=== PATIENT | female | born 1960 | race American Indian/Alaskan Native ===

== ENCOUNTER 2018-04-26 11:31 | Outpatient (CLI) | payer OTHER ==
--- NOTE | 2018-04-26 13:13 | Mammography Report ---
BILATERAL DIGITAL SCREENING MAMMOGRAM with CAD: 04/26/18 11:31:00 CLINICAL: The patient was scheduled as a routine screening as she reported that she had pain in her left breast for one month. COMPARISON:None available. A previous mammogram from [place] is not available. FINDINGS: The breasts are heterogeneously dense, which may obscure small masses and limit the sensitivity of mammography. Left upper outer asymmetric densities require additional imaging.No architectural distortion or suspicious calcifications.The right breast is negative. IMPRESSION: Left asymmetries requiring further workup. BI-RADS CATEGORY: 0 -- Additional Imaging Evaluation Required RECOMMENDATION: Recall for left MLO, CC and exaggerated CC spot compression views and left breast ultrasound. ACR BI-RADS MAMMOGRAPHIC CODES: 0 = Needs additional imaging evaluation; 1 = Negative; 2 = Benign; 3 = Probably benign; 4 = Suspicious; 5 = Malignant; 6 = Known biopsy-proven malignancy COMMENT: 1. Dense breast tissue, i.e., adenosis, fibrocystic changes, etc., may obscure an underlying neoplasm. 2. Approximately 10% of cancers are not detected with mammography. 3. A negative mammography report should not delay biopsy if a clinically suspicious mass is present. COMMENT: Patient follow-up letters are generated via our [email or web address] application.
== END 2018-04-26 11:32 | disposition home or self-care (01) ==
LOC: SPVWC 11:31
PROVIDERS: ATTEND Physician Assistant
DX: Z12.31 Encounter for screening mammogram for malignant neoplasm of breast (principal); E66.9 Obesity, unspecified; K21.9 Gastro-esophageal reflux disease without esophagitis; Z90.49 Acquired absence of other specified parts of digestive tract; Z87.891 Personal history of nicotine dependence
CPT/HCPCS: 77067

== ENCOUNTER 2018-05-25 13:48 | Outpatient (CLI) | payer OTHER ==
--- NOTE | 2018-05-25 15:53 | Mammography Report ---
LEFT DIGITAL DIAGNOSTIC MAMMOGRAM and LEFT BREAST ULTRASOUND: 05/25/18 13:48:00 CLINICAL: Recalled for asymmetries. COMPARISON:04/26/18 screening FINDINGS: Lateralmedial and spot magnification MLO and CC views were performed. Partial effacement of asymmetries. Ultrasound of the left breast (including all four quadrants and the retroareolar area) was performed and demonstrated a few small benign cysts and otherwise normal normal fibroglandular and fatty structures. No mass. IMPRESSION: Benign cysts and no suspicious findings. BI-RADS CATEGORY: 2 - - Benign RECOMMENDATION: Routine mammographic screening in one year. ACR BI-RADS MAMMOGRAPHIC CODES: 0 = Needs additional imaging evaluation; 1 = Negative; 2 = Benign; 3 = Probably benign; 4 = Suspicious; 5 = Malignant; 6 = Known biopsy-proven malignancy COMMENT: 1. Dense breast tissue, i.e., adenosis, fibrocystic changes, etc., may obscure an underlying neoplasm. 2. Approximately 10% of cancers are not detected with mammography. 3. A negative mammography report should not delay biopsy if a clinically suspicious mass is present. COMMENT: Patient follow-up letters are generated via our [employer] application.
== END 2018-05-25 13:49 | disposition home or self-care (01) ==
LOC: SPVWC 13:48
PROVIDERS: ATTEND Internal Medicine
DX: N60.02 Solitary cyst of left breast (principal)